=== PATIENT | male | born 1985 | race African-American/Black ===

== ENCOUNTER 2016-08-06 18:15 | Emergency (ER) | payer SELFPAY ==
[~2016-08-06] VITALS: Ht 182.9 cm; Wt 95.0 kg
[2016-08-06] MEDS ORDERED: IBUPROFEN 600MG TABLET PO ONE (23:45)
[2016-08-07 02:23] VITALS: BP 118/79
== END 2016-08-07 01:00 | disposition home or self-care (01) ==
LOC: ER 19:09
DX: S20.219A Contusion of unspecified front wall of thorax, initial encounter (principal); J45.909 Unspecified asthma, uncomplicated; V49.9XXA Car occupant (driver) (passenger) injured in unspecified traffic accident, initial encounter; Y93.89 Activity, other specified; Y92.89 Other specified places as the place of occurrence of the external cause; Y99.8 Other external cause status
CPT/HCPCS: 71010; 99283